=== PATIENT | female | born 1955 | race American Indian/Alaskan Native ===

== ENCOUNTER 2020-08-06 20:25 | Emergency (ER) | payer MEDICARE ==
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
[2020-08-06] MEDS ORDERED: LORazepam 2 MG/ML SDV IM ONE (21:00)
[2020-08-06] MEDS ORDERED: LORazepam 2 MG/ML SDV ONE (21:02)
[2020-08-06] MEDS ORDERED: Sodium Chloride 0.9% 10 ML Syringe FLUSH PRN (21:47)
[2020-08-06] MEDS ORDERED: MVI, Adult with Vitamin K 10 ML, Thiamine 100 MG, Folic Acid 1 MG, Magnesium Sulfate 3 ... IV SCH ×5 (22:00)
[2020-08-06] MEDS ORDERED: MVI, Adult with Vitamin K 10 ML SDV ONE (22:10)
[2020-08-06] MEDS ORDERED: Magnesium Sulfate (4.06 MEQ/ML) 1 GM/2 ML SDV ONE (22:10)
[2020-08-06] MEDS ORDERED: Sodium Chloride 0.9% 1,000 ML ONE (22:10)
[2020-08-06] MEDS ORDERED: LORazepam 2 MG/ML SDV IVPUSH STA (22:53)
== END 2020-08-06 23:19 ==
LOC: JP.ED 20:25
DX: F10.120 Alcohol abuse with intoxication, uncomplicated (principal); F10.150 Alcohol abuse with alcohol-induced psychotic disorder with delusions; Z79.899 Other long term (current) drug therapy
CPT/HCPCS: 36415; 80053; 80305; 80307; 81001; 85025; 96365; 96372; 96375; 99284; J2060; J3411; J3475; J7030; J3490